=== PATIENT | male | born 1990 | race African-American/Black ===

== ENCOUNTER 2020-08-05 11:38 | Emergency (ER) | payer MEDICAID, OTHER ==
[~2020-08-05] VITALS: Ht 188 cm; Wt 90.0 kg
[2020-08-05] MEDS ORDERED: LIDOCAINE HCL/PF 1% 10 MG/ML 5ML VIAL IJ ONE (12:00)
[2020-08-05 12:47] VITALS: BP 105/58
== END 2020-08-05 12:48 | disposition home or self-care (01) ==
LOC: ER 11:38
DX: S01.01XA Laceration without foreign body of scalp, initial encounter (principal); W22.8XXA Striking against or struck by other objects, initial encounter; Y93.01 Activity, walking, marching and hiking; Y92.89 Other specified places as the place of occurrence of the external cause; Y99.8 Other external cause status
CPT/HCPCS: 12001; 93005; 99283; J3490